=== PATIENT | male | born 1960 | race Caucasian/White ===

== ENCOUNTER → 2019-08-19 | Outpatient (CLI) | payer BC ==
--- NOTE | 2019-08-19 23:09 | CONS ---
CONSULTATION REASON FOR CONSULTATION: Sleep apnea. 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 The patient lives in [place] and drives back and forth every day. Denies feeling drowsy or sleepy while driving. He snores and he wakes up in the middle of the night. He is under a lot of stress due to his work and sometimes he cannot shut down his brain and in the middle of the night, he wakes up and he has difficulty in going back to sleep and this gets worse with stressful situations. He goes to bed around 930, wakes up at 5:30 am in the morning. He snores and stops breathing as mentioned. He has gained some weight recently and there is interest to rule out the possibility of obstructive sleep apnea. He has taken Xanax on a daily basis. 0.5 mg sometimes at bedtime and other times during the day to cut down some of his anxiety. No other complaints otherwise. No other major medical problems or comorbidities. [place] score is at 3. No sleepwalking or sleep talking. No restlessness in lower extremities. No depression. PAST MEDICAL HISTORY: Chronic anxiety, chronic allergic rhinitis. PAST SURGICAL HISTORY: Includes fundoplication surgery. DRUG ALLERGIES: Not known. OUTPATIENT MEDICATION LIST: Includes Xanax, Clobetasol cream and Flonase. SOCIAL HISTORY: The patient is a nonsmoker. No history of alcohol. No history of IV drugs. FAMILY HISTORY: Negative for sleep apnea. REVIEW OF SYSTEMS: Fourteen-point review of system was done. Positive findings are mentioned above in history of present illness. PHYSICAL EXAMINATION: BP is 113/77, pulse 76, respirations 16, temperature 97.7, saturation 97% on room air. Height is 5 feet 6 inches, weight is 188. Neck size 15.5 inches and BMI 29.8. GENERAL APPEARANCE: Calm and comfortable. Head atraumatic. Normocephalic. NECK: Supple. There is no JVD. No goiter or neck masses. Mallampati class 2-3. LUNGS: Clear to auscultation. HEART: Heart sounds are regular rate and rhythm. Normal S1, S2. No S3, S4. No murmurs. ABDOMEN: Soft, nontender. No organomegaly. EXTREMITIES: No edema. No cyanosis or clubbing. NEUROLOGIC: Awake, alert, oriented. No focal neurological deficits. PSYCHIATRIC: Positive for anxiety. No depression. IMPRESSION: 1. Obstructive sleep apnea clinically suspected, will need to be further investigated. The patient has no difficulties in sleep initiation. Yet his sleep is fragmented, could be related to obstructive sleep apnea. It could be related to increased anxiety/stress. 2. Chronic allergic rhinitis. PLAN: 1. We will proceed with a home sleep study. 2. We will contact the patient back with the results and further treatment plan is to follow. PELONL / IJN: [id number] /
== END | disposition home or self-care (01) ==
LOC: SLEEP 16:28
PROVIDERS: ATTEND Internal Medicine Critical Care Medicine
DX: J30.89 Other allergic rhinitis (principal); F41.8 Other specified anxiety disorders; Z79.899 Other long term (current) drug therapy
CPT/HCPCS: 99201

== ENCOUNTER 2021-10-07 09:44 | Day surgery (SDC) | payer BC ==
[2021-10-05 12:53] VITALS: BMI 29.0
[~2021-10-07 09:44] MED LIST: LACTATED RINGERS 1,000 ML IV SCH
[2021-10-07 10:25] VITALS: RESP 16; TEMP 97.3
[2021-10-07] MEDS ORDERED: MIDAZOLAM 2 MG/2 ML VIAL ONE (10:40)
[2021-10-07] MEDS ORDERED: PROPOFOL 10 MG/ML 20 ML VIAL IV ONE (10:40)
[2021-10-07] MEDS ORDERED: fentaNYL (PF) 50 MCG/ML 2 ML AMP ONE (10:40)
--- NOTE | 2021-10-07 11:00 | P.PCN ---
Date of Procedure: 10/07/21 Procedure(s) Performed: BRIEF HISTORY: Patient is a 61-year-old pleasant white male scheduled for an elective colonoscopy as a part of screening for colorectal neoplasia. PROCEDURE PERFORMED: Colonoscopy with snare polypectomy. PREOPERATIVE DIAGNOSIS: Screening for colon cancer. IV sedation per Anesthesia. PROCEDURE: After informed consent was obtained, the patient, was brought into the endoscopy unit. IV sedation was administered by Anesthesia under continuous monitoring. Digital rectal examination was normal. Initially the Olympus CF-160 flexible video colonoscope was then inserted in the rectum, gradually advanced into the cecum without any difficulty. Careful examination was performed as the scope was gradually being withdrawn. Ileocecal valve and the appendiceal orifice were visualized and appeared normal. Prep was excellent. Mucosa of the cecum, ascending colon, transverse colon, descending colon, sigmoid colon, appeared normal. Distal sigmoid colon there was a 3 mm and 1 cm polyp removed by snare polypectomy. Rectum appeared normal. Retroflexion was performed in the rectum and no lesions were seen. The patient tolerated the procedure well. IMPRESSION: 3 mm and 1 cm distal sigmoid colon polyp status post polypectomy scattered sigmoid diverticulosis RECOMMENDATIONS: Findings of this examination were discussed with the patient as well as his family. He was advised to follow with the biopsy results. If the biopsy reveals adenoma he can have a repeat colonoscopy in 3 years.
[2021-10-07 11:20] VITALS: BP 104/66; PULSE 76
== END 2021-10-07 11:40 | disposition home or self-care (01) ==
LOC: ORWHC2ENDO 09:44
PROVIDERS: ATTEND Internal Medicine Gastroenterology
DX: Z12.11 Encounter for screening for malignant neoplasm of colon (principal); D12.5 Benign neoplasm of sigmoid colon; K57.30 Diverticulosis of large intestine without perforation or abscess without bleeding
CPT/HCPCS: 45385; 88305; J2250; J3010; J2704

== ENCOUNTER → 2022-04-21 | Outpatient (CLI) | payer BC ==
--- NOTE | 2022-04-21 12:04 | XR ---
EXAMINATION TYPE: XR KUB DATE OF EXAM: 04/21/2022 COMPARISON: NONE HISTORY: Pain TECHNIQUE: One view abdominal series FINDINGS: The osseous structures are intact. The bowel gas pattern is nonspecific. Lung bases are clear. Hype rtrophic change of the spine with arthropathy of the hips. 2 mm calcification seen within the right p tonia. IMPRESSION: 1. No definite calculi are seen overlying the renal outlines. There is a punctate 2 mm right hemipelv ic calcification which is nonspecific correlate clinically.
== END | disposition home or self-care (01) ==
LOC: RADXRMAIN 11:29
PROVIDERS: ATTEND Urology
DX: N20.1 Calculus of ureter (principal)
CPT/HCPCS: 74018

== ENCOUNTER 2022-04-27 12:25 | Day surgery (SDC) | payer BC ==
[2022-04-26 12:07] VITALS: BMI 29.5
--- NOTE | 2022-04-26 21:56 | P.GSHP ---
History of Present Illness H&P Date: 04/26/22 Chief Complaint: Right renal colic The patient is a 62-year-old white male with no prior history of urolithiasis. Beginning in early March, he has experienced lower back pain radiating to the right lower quadrant. A CT scan on March 27 revealed mild right hydronephrosis due to a 3 mm right proximal ureteral calculus. For the past 2 weeks, he has experienced urinary frequency, urgency, and dysuria. KUB x-ray suggest that the calculus has migrated to the ureterovesical junction. He was initially treated with medical expulsion therapy. Due to persistent symptoms he has elected to undergo ureteroscopic removal of the calculus. - Constitutional Constitutional: Denies chills, Denies fever - Gastrointestinal Gastrointestinal: Reports nausea - Genitourinary (Male) Genitourinary: Reports dysuria, Reports flank pain, Reports kidney stones, Denies hematuria Past Medical History Past Medical History: No Reported History Additional Past Medical History / Comment(s): Kidney stones. History of Any Multi-Drug Resistant Organisms: None Reported Past Surgical History: Hernia Repair, Orthopedic Surgery Additional Past Surgical History / Comment(s): COLONOSCOPY. HARIKA PROCEDURE. SX RT HAND Past Anesthesia/Blood Transfusion Reactions: No Reported Reaction Past Psychological History: Anxiety Smoking Status: Never smoker Past Alcohol Use History: Occasional Past Drug Use History: None Reported - Past Family History Mother Family Medical History: No Reported History Father Family Medical History: Cancer Brother(s) Family Medical History: Cancer Additional Family Medical History / Comment(s): Skin cancer. Sister(s) Family Medical History: Cancer Additional Family Medical History / Comment(s): Skin cancer. Medications and Allergies Home Medications Medication Instructions Recorded Confirmed Type ALPRAZolam [Xanax] 0.5 mg PO DAILY PRN 10/05/21 04/26/22 History Naproxen [Naprosyn] 500 mg PO BID 04/26/22 04/26/22 History polyethylene glycoL 3350 [Miralax] 17 gm PO DAILY 04/26/22 04/26/22 History Allergies Allergy/AdvReac Type Severity Reaction Status Date / Time No Known Allergies Allergy Verified 04/26/22 11:58 Surgical - Exam - General well developed, well nourished, no distress - Neck no masses, trachea midline - Respiratory normal respiratory effort - Abdomen Abdomen: soft, non tender, no guarding, no rigid, no rebound - Psychiatric oriented to time, oriented to person, oriented to place, speech is normal, memory intact Results - Imaging Abdominal x-ray: report reviewed, image reviewed CT scan - abdomen: report reviewed, image reviewed Assessment and Plan (1) Calculus of ureter Status: Acute Code(s): N20.1 - CALCULUS OF URETER SNOMED Code(s): 99224466 Plan: Cystoscopy, right retrograde pyelogram, right ureteroscopy with Holmium laser lithotripsy and possible stone basketing, possible right ureteral stent insertion. The procedure then reviewed in detail with the patient. He has been made aware of potential risks, which include anesthesia, bleeding, infection, and ureteral injury.
--- NOTE | 2022-04-27 13:07 | XR ---
EXAMINATION TYPE: XR KUB DATE OF EXAM: 04/27/2022 Comparison: 04/21/2022 Clinical History: 62-year-old male preoperative exam for Right renal calculi Findings: Bowel content largely obscures the renal shadows. Cwhm-yw-mfoudrdy stool. Nonobstructive bowel gas pa ttern. Small pelvic phleboliths. Impression: Bowel content largely obscures the renal shadows.
[2022-04-27 14:10] VITALS: RESP 16
[2022-04-27] MEDS ORDERED: ONDANSETRON 4 MG/2 ML VIAL ONE (14:15)
[2022-04-27] MEDS ORDERED: LIDOCAINE 1% (10MG/ML) FOR IV START INTRADERMA ONE (14:28)
[2022-04-27] MEDS ORDERED: LACTATED RINGERS 1,000 ML IV ONE (14:28)
[2022-04-27] MEDS ORDERED: DEXAMETHASONE SOD PHOSPHATE 4 MG/ML 1 ML VIAL IV ONE (14:29)
[2022-04-27] MEDS ORDERED: ONDANSETRON 4 MG/2 ML VIAL IVP ONE (14:31)
[2022-04-27] MEDS ORDERED: MIDAZOLAM 2 MG/2 ML VIAL IV ONE (15:24)
[2022-04-27] MEDS ORDERED: GLYCOPYRROLATE 0.2 MG/ML 2 ML VIAL ONE (16:42)
[2022-04-27] MEDS ORDERED: PROPOFOL 10 MG/ML 20 ML VIAL IV ONE (16:42)
[2022-04-27] MEDS ORDERED: MIDAZOLAM 2 MG/2 ML VIAL ONE (16:42)
[2022-04-27] MEDS ORDERED: fentaNYL (PF) 50 MCG/ML 2 ML AMP ONE (16:42)
[2022-04-27] MEDS ORDERED: LIDOCAINE 2% INJ 20 MG/ML (2 ML VIAL) ONE (16:42)
[2022-04-27] MEDS ORDERED: KETOROLAC 15 MG/ML 1 ML VIAL ONE (16:42)
[2022-04-27] MEDS ORDERED: IOPAMIDOL-370 50ML BTL MISCELLANE ONE (17:15)
--- NOTE | 2022-04-27 18:08 | P.OP ---
Date of Procedure: 04/27/22 Preoperative Diagnosis: Right ureteral calculus Postoperative Diagnosis: Same Procedure(s) Performed: Cystoscopy, right retrograde pyelogram, right ureteroscopy with Holmium laser lithotripsy and stone basketing, right ureteral stent insertion Anesthesia: ALBAN Surgeon: Cole Gómez Estimated Blood Loss (ml): 5 IV fluids (ml): 600 Pathology: other (Calculus fragments, sent for chemical analysis) Condition: stable Disposition: PACU Indications for Procedure: The patient is a 62-year-old white male with no prior history of urolithiasis. Beginning in early March, he has experienced lower back pain radiating to the right lower quadrant. A CT scan on March 27 revealed mild right hydronephrosis due to a 3 mm right proximal ureteral calculus. For the past 2 weeks, he has experienced urinary frequency, urgency, and dysuria. KUB x-ray suggest that the calculus has migrated to the ureterovesical junction. He was initially treated with medical expulsion therapy. Due to persistent symptoms he has elected to undergo ureteroscopic removal of the calculus. Operative Findings: 3 mm right distal ureteral calculus, removed completely. Description of Procedure: The patient was taken to the operating room and placed in the dorsolithotomy position, with legs supported in Harsh stirrups. The external genitalia was prepped and draped sterilely. The 30 lens was used to introduce the 21-Georgian Martini cystoscopic sheath through the urethra and into the bladder under direct vision. The prostatic urethra showed evidence of mild lateral lobe enlargement. The bladder was examined in its entirety. Both ureteral orifices were normal anatomic location and configuration, and clear urine effluxed from both. No tumors or foreign bodies were seen. Using a 10-Georgian cone-tipped catheter, a right retrograde pyelogram was performed. No abnormalities were seen. The Martini semirigid ureteroscope was advanced into the bladder, and the right ureteral orifice was cannulated. The ureteroscope could be advanced only 1-2 cm, at which point a narrowing was encountered. Therefore, a 0.038 inch Glidewire was passed through the ureteroscope and up to the right renal pelvis. The ureteroscope was removed, and a 15-Georgian, 4 cm balloon dilating catheter was passed over the wire. This was used to dilate the distal ureter. After removing the balloon dilating catheter, ureteroscopy was repeated. The calculus was identified within the right distal ureter. The 272 micron Holmium laser probe was passed through the ureteroscope, and lithotripsy was performed. After fragmenting the calculus, all calculus fragments were removed from the ureter using a 1.5-Georgian basket. The calculus fragments were saved and sent for chemical analysis. There was no evidence of ureteral trauma. The cystoscope was replaced into the bladder. The Glidewire was passed up to the right renal pelvis, and a 24 cm, 4.8-Georgian double-J ureteral stent was placed over the wire. Proper stent positioning of verified fluoroscopically and endoscopically. The bladder was emptied and the cystoscope removed. The patient tolerated the procedure well and was taken to the recovery room in stable condition. [facility]IL[facility] Report: Procedure Acuity: Urgent Stone Size and Location: 3 mm, right distal ureter Ureteral Dilation: Balloon Dilation Ureteral Access Sheath Used: No Stone Sent for Analysis: Yes All Stones/Fragments Were Removed with a Basket: Yes Complications: No Preoperative Antibiotics Given: Yes Stent Placed: Yes If Stent Placed, Was String Left Attached: No If Stent Placed, When is it to be Removed: 1 week Discharge Medications: Toradol, tamsulosin
[2022-04-27 18:10] VITALS: TEMP 97.1
[2022-04-27] MEDS ORDERED: SODIUM CHLORIDE 0.9% 1,000 ML IV ONE (18:33)
[2022-04-27 18:49] VITALS: BP 139/86; PULSE 81
--- NOTE | 2022-04-28 08:05 | FL ---
EXAMINATION TYPE: FL guidance operating room DATE OF EXAM: 04/27/2022 HISTORY: Fluoroscopy time 60 seconds of fluoroscopy provided. IMPRESSION: 1. Fluoroscopy time.
== END 2022-04-27 19:11 | disposition home or self-care (01) ==
LOC: OR 12:25
PROVIDERS: ATTEND Urology
DX: N20.1 Calculus of ureter (principal); F41.9 Anxiety disorder, unspecified; N20.0 Calculus of kidney; F10.99 Alcohol use, unspecified with unspecified alcohol-induced disorder; Z98.890 Other specified postprocedural states; Z80.8 Family history of malignant neoplasm of other organs or systems; Z79.899 Other long term (current) drug therapy
CPT/HCPCS: 52356; 82365; 74018; C2625; C1758; J2250; J1100; J2405; J0690; J3010; J1885; J2704; Q9967; J2001

== ENCOUNTER 2022-04-28 03:16 | Emergency (ER) | payer BC ==
[2022-04-28 03:33] VITALS: RESP 18; TEMP 98.3
[2022-04-28] MEDS ORDERED: KETOROLAC 15 MG/ML 1 ML VIAL IVP STA (04:11)
[2022-04-28] MEDS ORDERED: HYDROmorphone 0.5 MG/0.5 ML SYRINGE IVP STA ×2 (04:11→06:08)
--- NOTE | 2022-04-28 04:29 | ED ---
General Adult HPI - General Chief complaint: Urogenital Stated complaint: surgery this morning in pain Time Seen by Provider: 04/28/22 03:34 Source: patient, RN notes reviewed, old records reviewed Mode of arrival: wheelchair - History of Present Illness Initial comments: 62-year-old male presenting for evaluation of abdominal pain, flank pain. Patient had A stone removed and stent placed earlier today. He was prescribed Flomax and Toradol. His symptoms have worsened throughout the night. He is able to urinate and is urinating blood. - Related Data Home Medications Medication Instructions Recorded Confirmed ALPRAZolam [Xanax] 0.5 mg PO DAILY PRN 10/05/21 04/27/22 Naproxen [Naprosyn] 500 mg PO BID 04/26/22 04/27/22 polyethylene glycoL 3350 [Miralax] 17 gm PO DAILY 04/26/22 04/27/22 Previous Rx's Medication Instructions Recorded Ketorolac [Toradol] 10 mg PO Q6HR PRN #10 tab 04/27/22 Tamsulosin [Flomax] 0.4 mg PO DAILY #10 cap 04/27/22 HYDROcodone/APAP 5-325MG [[place] 1 tab PO Q6HR PRN #12 tab 04/28/22 5-325] Allergies Allergy/AdvReac Type Severity Reaction Status Date / Time No Known Allergies Allergy Verified 04/28/22 03:33 Review of Systems ROS Statement: Those systems with pertinent positive or pertinent negative responses have been documented in the HPI. ROS Other: All systems not noted in ROS Statement are negative. Past Medical History Past Medical History: No Reported History Additional Past Medical History / Comment(s): Kidney stones. History of Any Multi-Drug Resistant Organisms: None Reported Past Surgical History: Hernia Repair, Orthopedic Surgery Additional Past Surgical History / Comment(s): COLONOSCOPY. HARIKA PROCEDURE. SX RT HAND Past Anesthesia/Blood Transfusion Reactions: No Reported Reaction Past Psychological History: Anxiety Smoking Status: Never smoker Past Alcohol Use History: Occasional Past Drug Use History: None Reported - Past Family History Mother Family Medical History: No Reported History Father Family Medical History: Cancer Brother(s) Family Medical History: Cancer Additional Family Medical History / Comment(s): Skin cancer. Sister(s) Family Medical History: Cancer Additional Family Medical History / Comment(s): Skin cancer. General Exam General appearance: alert, in no apparent distress Head exam: Present: atraumatic, normocephalic Eye exam: Present: normal appearance, PERRL ENT exam: Present: normal exam Neck exam: Present: normal inspection. Absent: tenderness, meningismus Respiratory exam: Present: normal lung sounds bilaterally. Absent: respiratory distress, wheezes Cardiovascular Exam: Present: regular rate, normal rhythm GI/Abdominal exam: Present: soft, tenderness. Absent: distended, guarding, rebound Extremities exam: Present: normal inspection, normal capillary refill. Absent: pedal edema Neurological exam: Present: alert, oriented X3, CN II-XII intact. Absent: motor sensory deficit Psychiatric exam: Present: normal affect, normal mood Skin exam: Present: warm, dry, intact. Absent: cyanosis, diaphoretic Course Vital Signs 04/28/22 03:30 Temperature 98.3 F Pulse Rate 103 H Respiratory 18 Rate Blood Pressure 135/88 O2 Sat by Pulse 96 Oximetry Medical Decision Making - Medical Decision Making 62-year-old male with right flank and right sided abdominal pain after kidney stone removal and stent placement. Patient appears uncomfortable but has stable vitals and no ab tenderness, no rebound or guarding. labs are wnl. Case discussed with Dr. Souza, pt will be discharged with close outpt followup. Pain controlled. - Lab Data Result diagrams: 04/28/22 04:44 04/28/22 04:44 Lab Results 04/28/22 04/28/22 Range/Units 04:44 04:44 WBC 11.5 H (3.8-10.6) k/uL RBC 4.85 (4.30-5.90) m/uL Hgb 14.8 (13.0-17.5) gm/dL Hct 43.7 (39.0-53.0) % MCV 90.2 (80.0-100.0) fL MCH 30.6 (25.0-35.0) pg MCHC 33.9 (31.0-37.0) g/dL RDW 12.0 (11.5-15.5) % Plt Count 235 (150-450) k/uL MPV 7.5 Neutrophils % 87 % Lymphocytes % 8 % Monocytes % 4 % Eosinophils % 1 % Basophils % 0 % Neutrophils # 10.0 H (1.3-7.7) k/uL Lymphocytes # 0.9 L (1.0-4.8) k/uL Monocytes # 0.4 (0-1.0) k/uL Eosinophils # 0.1 (0-0.7) k/uL Basophils # 0.0 (0-0.2) k/uL Sodium 136 L (137-145) mmol/L Potassium 4.2 (3.5-5.1) mmol/L Chloride 102 (98-107) mmol/L Carbon Dioxide 22 (22-30) mmol/L Anion Gap 12 mmol/L BUN 20 (9-20) mg/dL Creatinine 1.02 (0.66-1.25) mg/dL Est GFR (CKD-EPI)AfAm >90 (>60 ml/min/1.73 sqM) Est GFR (CKD-EPI)NonAf 79 (>60 ml/min/1.73 sqM) Glucose 133 H (74-99) mg/dL Calcium 9.4 (8.4-10.2) mg/dL Total Bilirubin 0.7 (0.2-1.3) mg/dL AST 24 (17-59) U/L ALT 19 (4-49) U/L Alkaline Phosphatase 52 (38-126) U/L Total Protein 6.7 (6.3-8.2) g/dL Albumin 4.3 (3.5-5.0) g/dL Disposition Clinical Impression: Ureteral stent present Disposition: HOME SELF-CARE Condition: Fair Instructions (If sedation given, give patient instructions): Flank Pain (ED) Prescriptions: HYDROcodone/APAP 5-325MG [[place] 5-325] 1 tab PO Q6HR PRN #12 tab PRN Reason: Pain Is patient prescribed a controlled substance at d/c from ED?: No Referrals: Jaskaran Corrales DO [Primary Care Provider] - 1-2 days Cole Gómez MD [STAFF PHYSICIAN] - 1-2 days Time of Disposition: 05:42
[2022-04-28 04:55] LABS: Basophils % (A) 0 %; Eosinophils # (A) 0.1 k/uL (0-0.7); Eosinophils % (A) 1 %; HCT 43.7 % (39.0-53.0); HGB 14.8 gm/dL (13.0-17.5); Lymphocytes # (A) 0.9 k/uL (1.0-4.8); Lymphocytes % (A) 8 %; MCH 30.6 pg (25.0-35.0); MCHC 33.9 g/dL (31.0-37.0); MCV 90.2 fL (80.0-100.0); Mean Platelet Volume 7.5; Monocytes # (A) 0.4 k/uL (0-1.0); Monocytes % (A) 4 %; Neutrophils % (A) 87 %; Platelet Count 235 k/uL (150-450); RBC 4.85 m/uL (4.30-5.90); WBC 11.5 k/uL (3.8-10.6)
[2022-04-28 05:04] LABS: ALT 19 U/L (4-49); AST 24 U/L (17-59); African American GFR (CKD) >90 (>60 ml/min/1.73 sqM); Albumin 4.3 g/dL (3.5-5.0); Alkaline Phosphatase 52 U/L (38-126); Anion Gap 12 mmol/L; Blood Urea Nitrogen 20 mg/dL (9-20); Calcium 9.4 mg/dL (8.4-10.2); Carbon Dioxide 22 mmol/L (22-30); Chloride 102 mmol/L (98-107); Glucose 133 mg/dL (74-99); Non-African American GFR(CKD) 79 (>60 ml/min/1.73 sqM); Potassium 4.2 mmol/L (3.5-5.1); Sodium 136 mmol/L (137-145); Total Bilirubin 0.7 mg/dL (0.2-1.3); Total Protein 6.7 g/dL (6.3-8.2)
[2022-04-28 06:13] VITALS: BP 121/79; PULSE 66
== END 2022-04-28 06:19 | disposition home or self-care (01) ==
LOC: EC 03:16
DX: T83.122A Displacement of indwelling ureteral stent, initial encounter (principal); F41.9 Anxiety disorder, unspecified; Z79.899 Other long term (current) drug therapy
CPT/HCPCS: 99284; 96374; 96375; 96376; 51798; 36415; 80053; 85025; J1885; J1170

== ENCOUNTER → 2022-09-07 | Outpatient (CLI) | payer BC ==
--- NOTE | 2022-09-07 16:15 | XR ---
EXAMINATION TYPE: XR KUB DATE OF EXAM: 09/07/2022 CLINICAL HISTORY: Left posterior pain. History of kidney stones TECHNIQUE: Supine KUB images of the abdomen are obtained. COMPARISON: 04/27/2022 and 04/21/2022 FINDINGS: Significant stool throughout the colon obscures the renal shadows. There are no suspicious calculi projecting over the expected location of either kidney. There is a tiny calculus in the right hemipelvis which could be a distal ureteral calculus or pelvic vascular calcification. No acute osse ous abnormality. IMPRESSION: 1. Tiny calculus in the right hemipelvis could be a distal right ureteral stone or pelvic vascular ca lcification. Of note, patient's reported pain is on the other side. 2. Moderate stool burden throughout the colon.
== END | disposition home or self-care (01) ==
LOC: RADXRMAIN 14:45
PROVIDERS: ATTEND Urology
DX: N20.0 Calculus of kidney (principal); N23 Unspecified renal colic; R19.5 Other fecal abnormalities
CPT/HCPCS: 74018

== ENCOUNTER → 2023-08-16 | Outpatient (CLI) | payer BC ==
--- NOTE | 2023-08-16 15:47 | CT ---
EXAMINATION TYPE: CT sinus wo con DATE OF EXAM: 08/16/2023 COMPARISON: None. HISTORY: sinusitis CT DLP: 570.8 mGycm. Automated Exposure Control for Dose Reduction was Utilized. TECHNIQUE: CT scan of the sinuses is performed without contrast, axial images are obtained, coronal r eformatted images are also reviewed. FINDINGS: The paranasal sinuses including the frontal, ethmoid, sphenoid, and maxillary sinuses bila terally are well-aerated without abnormal opacification. The ostiomeatal complex is patent bilateral ly on coronal image 22. Visualized portion of mastoid air cells show no abnormal opacification. The globes are intact bilate rally. IMPRESSION: The sinuses are clear and the ostiomeatal complex is patent bilaterally.
== END | disposition home or self-care (01) ==
LOC: RADCTMAIN 08:32
PROVIDERS: ATTEND Otolaryngology
DX: J32.0 Chronic maxillary sinusitis (principal)
CPT/HCPCS: 70486

== ENCOUNTER → 2024-08-08 | Outpatient (CLI) | payer BC ==
--- NOTE | 2024-08-09 11:13 | CT ---
EXAMINATION TYPE: CT urogram wo/w con DATE OF EXAM: 08/08/2024 5:08 PM COMPARISON: None CLINICAL INDICATION: Male, 64 years old with history of R10.9 Flank pain; PHH, flank pain TECHNIQUE: Urogram with imaging of the abdomen and pelvis. Coronal and sagittal reformats were performed. 2D and 3D reconstructions are performed to assist visualization of the urinary tract on a separate workstat ion. Contrast used:100 mL of Isovue 370 without and with IV Contrast, Oral contrast used: None. CT DLP: 1957.6 mGycm, Automated exposure control for dose reduction was used. FINDINGS: LOWER CHEST: No significant findings. GENITOURINARY: RIGHT KIDNEY AND URETER: Nonobstructing right calculus measuring 3 mm.. Peripelvic renal cysts presen t. No hydronephrosis or hydroureter. No renal mass or other lesions. No urothelial lesions: no fillin g defect, dilation, stricture or wall thickening. LEFT KIDNEY AND URETER: No calculi. Peripelvic renal cysts present. No hydronephrosis or hydroureter. No renal mass or other lesions. No urothelial lesions: no filling defect, dilation, stricture or wal l thickening. URINARY BLADDER: REPRODUCTIVE: Prostate is enlarged in size measuring 4.5 cm in transverse dimension. ABDOMEN LIVER: Unremarkable. GALLBLADDER AND BILE DUCTS: Unremarkable PANCREAS: Unremarkable. SPLEEN: Unremarkable. ADRENAL GLANDS: Unremarkable. STOMACH AND BOWEL: . No evidence of bowel obstruction. The appendix is normal. PERITONEUM: No evidence of pneumoperitoneum, free fluid, or adenopathy. VASCULATURE: No evidence of aortic aneurysm. MUSCULOSKELETAL: No acute osseous abnormalities LYMPH NODES: No gross evidence for lymphadenopathy. SOFT TISSUE/ABDOMINAL WALL: Small fat-containing buccal hernia. IMPRESSION: 1. Right nonobstructing renal calculus. No evidence for solid renal mass or urothelial lesion. 2. Prostatomegaly, correlate serum PSA. 3. Hepatic steatosis. [facility], , 08/09/2024 11:10 AM
== END | disposition home or self-care (01) ==
LOC: RADCTMAIN 15:58
PROVIDERS: ATTEND Family Medicine
DX: N20.0 Calculus of kidney (principal); N40.0 Benign prostatic hyperplasia without lower urinary tract symptoms; K76.0 Fatty (change of) liver, not elsewhere classified
CPT/HCPCS: 74178; 74400; Q9967